=== PATIENT | male | born 1925 | race Two or more races ===

== ENCOUNTER 2016-12-27 18:50 | Emergency (ER) | payer MEDICARE ==
[2016-12-27] MEDS ORDERED: METOPROLOL TARTRATE 12.5 MG TAB PO STA (19:43)
--- NOTE | 2016-12-27 19:47 | ED ---
General Adult HPI - General Chief complaint: Neuro Symptoms/Deficit Stated complaint: Altered Mental Status Time Seen by Provider: 12/27/16 19:23 Source: EMS Mode of arrival: EMS Limitations: altered mental status ([place]) - History of Present Illness Initial comments: Patient is an 89-year-old man sent from senior care to have evaluation. The senior care paper states that the patient had a bowel movement but then refused to let anyone changes undergarments throughout the course of today. They sent him here for "refusal to have treatment." Patient is coming by daughters who state that he does have some underlying dementia. He was transferred from his private home to monitor would dementia unit yesterday and has been there approximately 24 hours. They are also aware of some underlying left leg cellulitis. The patient does have some dementia and is not able to provide much history. He states that there is nothing wrong with him. He denies any pain. He denies dyspnea. He states that he wants to go home. -: hour(s) Improves with: none Worsens with: none Associated Symptoms: denies other symptoms Treatments Prior to Arrival: none - Related Data Home Medications Medication Instructions Recorded Confirmed Bisacodyl [Dulcolax] 10 mg RECTAL DAILY PRN 12/27/16 12/27/16 Donepezil [Aricept] 10 mg PO HS 12/27/16 12/27/16 Doxazosin [Cardura] 1 mg PO HS 12/27/16 12/27/16 Hydrochlorothiazide 12.5 mg PO DAILY 12/27/16 12/27/16 Linagliptin [Tradjenta] 5 mg PO DAILY 12/27/16 12/27/16 Magnesium Hydroxide [Milk of 2,400 mg PO DAILY PRN 12/27/16 12/27/16 Magnesia] Na Phos,M-B/Na Phos,Di-Ba [Fleet 133 ml RECTAL DAILY PRN 12/27/16 12/27/16 Adult] Simvastatin [Zocor] 20 mg PO HS 12/27/16 12/27/16 risperiDONE [RisperDAL] 0.25 mg PO BID PRN 12/27/16 12/27/16 risperiDONE [RisperDAL] 0.5 mg PO HS 12/27/16 12/27/16 Previous Rx's Medication Instructions Recorded Sulfamethox-Tmp 800-160Mg [Bactrim 2 each PO Q12HR #28 tab 12/27/16 Ds] Allergies Allergy/AdvReac Type Severity Reaction Status Date / Time No Known Allergies Allergy Verified 12/27/16 19:25 Review of Systems ROS Statement: Those systems with pertinent positive or pertinent negative responses have been documented in the HPI. ROS Other: All systems not noted in ROS Statement are negative. Respiratory: Denies: cough, dyspnea Cardiovascular: Denies: chest pain Gastrointestinal: Denies: abdominal pain Neurological: Denies: headache Past Medical History Past Medical History: Dementia, Diabetes Mellitus, Hyperlipidemia, Hypertension History of Any Multi-Drug Resistant Organisms: None Reported Past Surgical History: Unable to Obtain Past Psychological History: No Psychological Hx Reported Smoking Status: Unknown if ever smoked Past Alcohol Use History: None Reported Past Drug Use History: None Reported General Exam Limitations: altered mental status General appearance: alert, in no apparent distress Head exam: Present: atraumatic, normocephalic, normal inspection Eye exam: Present: normal appearance, PERRL, EOMI. Absent: scleral icterus, conjunctival injection, nystagmus Respiratory exam: Present: normal lung sounds bilaterally. Absent: respiratory distress, wheezes, rales, rhonchi, stridor Cardiovascular Exam: Present: regular rate, systolic murmur (Grade 2/6 systolic ejection murmur), diastolic murmur, rubs, gallop GI/Abdominal exam: Present: soft, normal bowel sounds, hernia (Patient has a rectus diastasis and also has a small umbilical hernia which is nontender and is easily reduced.). Absent: tenderness, guarding, rebound, mass Extremities exam: Present: normal capillary refill, other (Patient has some erythema of the left lower extremity consistent with the previous mentioned cellulitis.). Absent: pedal edema, calf tenderness Back exam: Present: normal inspection. Absent: CVA tenderness (R), CVA tenderness (L) Neurological exam: Present: alert, oriented X3 (Patient is oriented to person only). Absent: motor sensory deficit Skin exam: Present: warm, dry, intact, erythema (Left lower extremity). Absent : rash Course Vital Signs 12/27/16 12/27/16 12/27/16 18:59 21:16 22:00 Temperature 98.4 F 97.8 F Pulse Rate 93 72 Respiratory 18 18 18 Rate Blood Pressure 199/84 175/78 O2 Sat by Pulse 96 97 Oximetry 12/27/16 23:40 Temperature 97.5 F L Pulse Rate 82 Respiratory 16 Rate Blood Pressure 187/82 O2 Sat by Pulse 97 Oximetry Medical Decision Making - Lab Data Result diagrams: 12/27/16 20:45 12/27/16 20:45 Lab Results 12/27/16 12/27/16 12/27/16 Range/Units 20:45 20:45 20:45 WBC 10.0 (3.8-10.6) k/uL RBC 3.92 L (4.30-5.90) m/uL Hgb 12.7 L (13.0-17.5) gm/dL Hct 35.9 L (39.0-53.0) % MCV 91.6 (80.0-100.0) fL MCH 32.3 (25.0-35.0) pg MCHC 35.3 (31.0-37.0) g/dL RDW 12.4 (11.5-15.5) % Plt Count 150 (150-450) k/uL Neutrophils % 57 % Lymphocytes % 36 % Monocytes % 4 % Eosinophils % 1 % Basophils % 0 % Neutrophils # 5.6 (1.3-7.7) k/uL Lymphocytes # 3.6 (1.0-4.8) k/uL Monocytes # 0.4 (0-1.0) k/uL Eosinophils # 0.1 (0-0.7) k/uL Basophils # 0.0 (0-0.2) k/uL PT (9.0-12.0) sec INR (<1.1) APTT (22.0-30.0) sec Sodium 140 (137-145) mmol/L Potassium 4.4 (3.5-5.1) mmol/L Chloride 104 (98-107) mmol/L Carbon Dioxide 26 (22-30) mmol/L Anion Gap 10 mmol/L BUN 26 H (9-20) mg/dL Creatinine 1.18 (0.66-1.25) mg/dL Est GFR (MDRD) Af Amer >60 (>60 ml/min/1.73 sqM) Est GFR (MDRD) Non-Af 58 (>60 ml/min/1.73 sqM) Glucose 155 H (74-99) mg/dL Plasma Lactic Acid Sung (0.7-2.0) mmol/L Calcium 9.1 (8.4-10.2) mg/dL Total Bilirubin 0.8 (0.2-1.3) mg/dL AST 31 (17-59) U/L ALT 24 (21-72) U/L Alkaline Phosphatase 67 (38-126) U/L Total Creatine Kinase 491 H (55-170) U/L CK-MB (CK-2) 14.2 H* (0.0-2.4) ng/mL CK-MB (CK-2) Rel Index 2.9 Troponin I <0.012 (0.000-0.034) ng/mL Total Protein 7.2 (6.3-8.2) g/dL Albumin 4.2 (3.5-5.0) g/dL 12/27/16 12/27/16 Range/Units 20:45 20:45 WBC (3.8-10.6) k/uL RBC (4.30-5.90) m/uL Hgb (13.0-17.5) gm/dL Hct (39.0-53.0) % MCV (80.0-100.0) fL MCH (25.0-35.0) pg MCHC (31.0-37.0) g/dL RDW (11.5-15.5) % Plt Count (150-450) k/uL Neutrophils % % Lymphocytes % % Monocytes % % Eosinophils % % Basophils % % Neutrophils # (1.3-7.7) k/uL Lymphocytes # (1.0-4.8) k/uL Monocytes # (0-1.0) k/uL Eosinophils # (0-0.7) k/uL Basophils # (0-0.2) k/uL PT 10.4 (9.0-12.0) sec INR 1.0 (<1.1) APTT 24.9 (22.0-30.0) sec Sodium (137-145) mmol/L Potassium (3.5-5.1) mmol/L Chloride (98-107) mmol/L Carbon Dioxide (22-30) mmol/L Anion Gap mmol/L BUN (9-20) mg/dL Creatinine (0.66-1.25) mg/dL Est GFR (MDRD) Af Amer (>60 ml/min/1.73 sqM) Est GFR (MDRD) Non-Af (>60 ml/min/1.73 sqM) Glucose (74-99) mg/dL Plasma Lactic Acid Sung 1.6 (0.7-2.0) mmol/L Calcium (8.4-10.2) mg/dL Total Bilirubin (0.2-1.3) mg/dL AST (17-59) U/L ALT (21-72) U/L Alkaline Phosphatase (38-126) U/L Total Creatine Kinase (55-170) U/L CK-MB (CK-2) (0.0-2.4) ng/mL CK-MB (CK-2) Rel Index Troponin I (0.000-0.034) ng/mL Total Protein (6.3-8.2) g/dL Albumin (3.5-5.0) g/dL Disposition Clinical Impression: Cellulitis, Dementia Disposition: OTHER INSTITUTION NOT DEFINED Condition: Fair Instructions: Cellulitis (ED), Dementia (ED) Prescriptions: Sulfamethox-Tmp 800-160Mg [Bactrim Ds] 2 each PO Q12HR #28 tab Referrals: Abdiel López MD [Primary Care Provider] - 1-2 days - Out of Hospital Transfer - Req. Specs Out of Hospital Transfer - Requested Specifics: Other Non-Acute (LTCF)
[2016-12-27 20:59] LABS: Basophils % (A) 0 %; CH 32.5; CHCM 35.7; Eosinophils # (A) 0.1 k/uL (0-0.7); Eosinophils % (A) 1 %; HCT 35.9 % (39.0-53.0); HDW 2.92; HGB 12.7 gm/dL (13.0-17.5); Luc # (Auto) 0.31; Luc % (Auto) 3; Lymphocytes # (A) 3.6 k/uL (1.0-4.8); Lymphocytes % (A) 36 %; MCH 32.3 pg (25.0-35.0); MCHC 35.3 g/dL (31.0-37.0); MCV 91.6 fL (80.0-100.0); Mean Platelet Volume 6.9; Monocytes # (A) 0.4 k/uL (0-1.0); Monocytes % (A) 4 %; Neutrophils # (A) 5.6 k/uL (1.3-7.7); Neutrophils % (A) 57 %; RBC 3.92 m/uL (4.30-5.90); RDW 12.4 % (11.5-15.5); WBC (Perox) 10.72
[2016-12-27 21:09] LABS: ALT 24 U/L (21-72); AST 31 U/L (17-59); Alkaline Phosphatase 67 U/L (38-126); Anion Gap 10 mmol/L; Blood Urea Nitrogen 26 mg/dL (9-20); Calcium 9.1 mg/dL (8.4-10.2); Carbon Dioxide 26 mmol/L (22-30); Chloride 104 mmol/L (98-107); Glucose 155 mg/dL (74-99); Non-African American GFR(MDRD) 58 (>60 ml/min/1.73 sqM); Potassium 4.4 mmol/L (3.5-5.1); Sodium 140 mmol/L (137-145); Total Bilirubin 0.8 mg/dL (0.2-1.3); Total Protein 7.2 g/dL (6.3-8.2)
[2016-12-27 21:15] LABS: Partial Thromboplastin Time 24.9 sec (22.0-30.0); Prothrombin Time 10.4 sec (9.0-12.0)
[2016-12-27 21:24] LABS: Creatine Kinase 491 U/L (55-170)
[2016-12-27 21:37] LABS: Troponin I <0.012 ng/mL (0.000-0.034)
--- NOTE | 2016-12-27 21:38 | CT ---
EXAMINATION TYPE: CT brain wo con for TPA DATE OF EXAM: 12/27/2016 COMPARISON: NONE INDICATION: Altered mental status. DLP: 1126.5 mGycm, Automated exposure control for dose reduction was used. CONTRAST: None CT of the brain is performed utilizing 3 mm thick sections through the posterior fossa and 3 mm thick sections through the remaining calvarium. Study is performed within 24 hours of arrival to the hosp [facility]. No abnormal hyperdensity is present to suggest an acute intracranial hemorrhage. No mass lesion is evident. Small amount of physiologic basal ganglion calcification is within the lef t basal ganglion. No acute infarcts are evident. There is mild periventricular white matter hypodensity, likely on the basis of chronic white matter ischemic change. Ventricles and sulci are prominent for the patient age. Paranasal sinuses and mastoid air cells within the [id number] are clear. IMPRESSIONS: 1. Atrophy with periventricular white matter changes. 2. No acute intracranial process. 3. Report was called to emergency room by Dr. Chávez by telephone [id number] hours 12/27/2016
--- NOTE | 2016-12-27 21:40 | XR ---
EXAMINATION TYPE: XR chest 2V DATE OF EXAM: 12/27/2016 COMPARISON: NONE INDICATION: Altered mental status TECHNIQUE: Frontal and lateral views of the chest are obtained. FINDINGS: The heart size is normal. The pulmonary vasculature is normal. There is silhouetting left diaphragm and blunting left costophrenic angle. Small posterior pleural ef fusion appears to be present on the lateral projection.. IMPRESSION: 1. Small left pleural effusion
[2016-12-27] MEDS ORDERED: SULFAMETHOX-TMP 800-160MG 1 EACH TAB PO STA (21:41)
[2016-12-27 21:43] LABS: Creatine Kinase MB 14.2 ng/mL (0.0-2.4)
[2016-12-27 23:46] VITALS: BP 187/82; PULSE 82; RESP 16; TEMP 97.5
== END 2016-12-27 23:40 | disposition short-term general hospital (02) ==
LOC: EC 18:50
DX: L03.116 Cellulitis of left lower limb (principal); F03.90 Unspecified dementia, unspecified severity, without behavioral disturbance, psychotic disturbance, mood disturbance, and anxiety; E11.9 Type 2 diabetes mellitus without complications; E78.5 Hyperlipidemia, unspecified; I10 Essential (primary) hypertension; Z79.899 Other long term (current) drug therapy
CPT/HCPCS: 36415; 70450; 71020; 80053; 82550; 82553; 83605; 84484; 85025; 85610; 85730; 99285